=== PATIENT | male | born 1945 | race African-American/Black ===

== ENCOUNTER → 2016-06-29 | Outpatient (CLI) | payer MEDICARE, MEDICAID ==
[~2016-06-29] VITALS: Ht 180.3 cm; Wt 79.0 kg
[~2016-06-29] MED LIST: ADV250 IH; AMLO-511 PO; ASPI-891 PO; ATOR80TA PO; BACL10TA PO; DOCU250C21 PO; FURO40 PO; IPRA4AER IH; KDUR10 PO; LACT30L PO; LISI-662 PO; MELO-273 PO; MEMA5 PO; METO25 PO; NITR.4 SL; OMEP40CA12 PO; PERCT10 PO; PHEN100C9 PO; PRAS10TA6 PO; TAMS0.4C32 PO; TIOT185 IH; VALS1TAB81 PO
[2016-06-29 10:20] VITALS: BP 149/77
== END | disposition home or self-care (01) ==
LOC: SRCNTR 10:10
PROVIDERS: ATTEND Internal Medicine Cardiovascular Disease
DX: J44.9 Chronic obstructive pulmonary disease, unspecified (principal); I10 Essential (primary) hypertension; I25.10 Atherosclerotic heart disease of native coronary artery without angina pectoris; E78.5 Hyperlipidemia, unspecified; I73.9 Peripheral vascular disease, unspecified; M19.90 Unspecified osteoarthritis, unspecified site; Z86.718 Personal history of other venous thrombosis and embolism; Z95.5 Presence of coronary angioplasty implant and graft; Z87.891 Personal history of nicotine dependence
CPT/HCPCS: G0463

== ENCOUNTER 2016-08-10 15:15 | Emergency (ER) | payer MEDICARE, MEDICAID ==
[~2016-08-10] VITALS: Ht 180.3 cm; Wt 79.1 kg
[2016-08-10 15:18] VITALS: BP 104/67
== END 2016-08-10 19:37 | disposition left against medical advice (07) ==
LOC: EMS 15:17
DX: R20.0 Anesthesia of skin (principal); Z53.21 Procedure and treatment not carried out due to patient leaving prior to being seen by health care provider
CPT/HCPCS: 93005

== ENCOUNTER → 2016-10-10 | Outpatient (CLI) | payer MEDICARE, MEDICAID ==
[~2016-10-10] VITALS: Ht 177.8 cm; Wt 78.0 kg
[~2016-10-10] MED LIST changes: -ASPI-891 PO; -PERCT10 PO; -PRAS10TA6 PO
[2016-10-10 10:32] VITALS: BP 113/66
== END | disposition home or self-care (01) ==
LOC: SRCNTR 10:23
PROVIDERS: ATTEND Internal Medicine Cardiovascular Disease
DX: J44.9 Chronic obstructive pulmonary disease, unspecified (principal); I10 Essential (primary) hypertension; I25.10 Atherosclerotic heart disease of native coronary artery without angina pectoris; M19.90 Unspecified osteoarthritis, unspecified site; E78.5 Hyperlipidemia, unspecified; I73.9 Peripheral vascular disease, unspecified; Z86.73 Personal history of transient ischemic attack (TIA), and cerebral infarction without residual deficits; Z95.5 Presence of coronary angioplasty implant and graft; Z87.891 Personal history of nicotine dependence
CPT/HCPCS: G0463

== ENCOUNTER → 2016-11-04 | Outpatient (CLI) | payer MEDICARE, MEDICAID ==
[~2016-11-04] VITALS: Ht 180.3 cm; Wt 75.0 kg
[~2016-11-04] MED LIST changes: -ADV250 IH
[2016-11-04 11:47] VITALS: BP 110/55
== END | disposition home or self-care (01) ==
LOC: SRCNTR 11:33
PROVIDERS: ATTEND Hospitalist
DX: I10 Essential (primary) hypertension (principal); I25.10 Atherosclerotic heart disease of native coronary artery without angina pectoris; J44.9 Chronic obstructive pulmonary disease, unspecified; N40.1 Benign prostatic hyperplasia with lower urinary tract symptoms; M16.11 Unilateral primary osteoarthritis, right hip; I73.9 Peripheral vascular disease, unspecified; Z86.73 Personal history of transient ischemic attack (TIA), and cerebral infarction without residual deficits
CPT/HCPCS: G0463

== ENCOUNTER → 2016-12-14 | Outpatient (CLI) | payer MEDICARE, MEDICAID ==
[~2016-12-14] MED LIST changes: +PREG75 PO
[2016-12-14 10:58] VITALS: BP 141/65
== END | disposition home or self-care (01) ==
LOC: SRCNTR 10:40
PROVIDERS: ATTEND Internal Medicine Cardiovascular Disease
DX: J44.9 Chronic obstructive pulmonary disease, unspecified (principal); I25.10 Atherosclerotic heart disease of native coronary artery without angina pectoris; I10 Essential (primary) hypertension; I73.9 Peripheral vascular disease, unspecified; M19.90 Unspecified osteoarthritis, unspecified site; R26.2 Difficulty in walking, not elsewhere classified; Z87.891 Personal history of nicotine dependence; Z86.718 Personal history of other venous thrombosis and embolism; Z86.73 Personal history of transient ischemic attack (TIA), and cerebral infarction without residual deficits
CPT/HCPCS: G0463

== ENCOUNTER → 2017-02-13 | Outpatient (CLI) | payer MEDICARE, MEDICAID ==
[~2017-02-13] MED LIST changes: +ASPI81 PO; -DOCU250C21 PO; +DOCU250C90 PO; +FAMO20 PO; +FINA5TAB41 PO; +MELO-107 PO; -MELO-273 PO; +PRAS10TA6 PO; +PROM25 PO
[2017-02-13 09:57] VITALS: BP 140/91
== END | disposition home or self-care (01) ==
LOC: SRCNTR 09:52
PROVIDERS: ATTEND Internal Medicine Cardiovascular Disease
DX: I25.10 Atherosclerotic heart disease of native coronary artery without angina pectoris (principal); I73.9 Peripheral vascular disease, unspecified; J44.9 Chronic obstructive pulmonary disease, unspecified; I10 Essential (primary) hypertension; E78.5 Hyperlipidemia, unspecified; M19.90 Unspecified osteoarthritis, unspecified site; Z86.718 Personal history of other venous thrombosis and embolism; Z86.73 Personal history of transient ischemic attack (TIA), and cerebral infarction without residual deficits; Z87.891 Personal history of nicotine dependence; Z98.890 Other specified postprocedural states
CPT/HCPCS: G0463

== ENCOUNTER → 2017-02-23 | Outpatient (CLI) | payer MEDICARE, MEDICAID, OTHER ==
[2017-02-23 12:10] VITALS: BP 171/96
== END | disposition home or self-care (01) ==
LOC: SRCNTR 11:30
PROVIDERS: ATTEND Hospitalist
DX: J44.9 Chronic obstructive pulmonary disease, unspecified (principal); I25.10 Atherosclerotic heart disease of native coronary artery without angina pectoris; I10 Essential (primary) hypertension; E78.5 Hyperlipidemia, unspecified; M19.90 Unspecified osteoarthritis, unspecified site; Z98.890 Other specified postprocedural states; Z87.891 Personal history of nicotine dependence; Z86.73 Personal history of transient ischemic attack (TIA), and cerebral infarction without residual deficits; Z86.718 Personal history of other venous thrombosis and embolism
CPT/HCPCS: G0463

== ENCOUNTER → 2017-03-27 | Outpatient (CLI) | payer MEDICARE, MEDICAID ==
[2017-03-27 12:03] VITALS: BP 116/84
== END | disposition home or self-care (01) ==
LOC: SRCNTR 11:47
PROVIDERS: ATTEND Hospitalist
DX: I10 Essential (primary) hypertension (principal); I25.10 Atherosclerotic heart disease of native coronary artery without angina pectoris; J44.9 Chronic obstructive pulmonary disease, unspecified; E78.5 Hyperlipidemia, unspecified; M19.90 Unspecified osteoarthritis, unspecified site; I73.9 Peripheral vascular disease, unspecified; Z86.73 Personal history of transient ischemic attack (TIA), and cerebral infarction without residual deficits; Z86.718 Personal history of other venous thrombosis and embolism; Z87.891 Personal history of nicotine dependence
CPT/HCPCS: G0463

== ENCOUNTER → 2017-04-10 | Outpatient (CLI) | payer MEDICARE, MEDICAID ==
[2017-04-10 10:48] VITALS: BP 159/78
== END | disposition home or self-care (01) ==
LOC: SRCNTR 10:35
PROVIDERS: ATTEND Internal Medicine Cardiovascular Disease
DX: I10 Essential (primary) hypertension (principal); E78.5 Hyperlipidemia, unspecified; I25.10 Atherosclerotic heart disease of native coronary artery without angina pectoris; I73.9 Peripheral vascular disease, unspecified; J44.9 Chronic obstructive pulmonary disease, unspecified; M19.90 Unspecified osteoarthritis, unspecified site; Z86.73 Personal history of transient ischemic attack (TIA), and cerebral infarction without residual deficits; Z79.82 Long term (current) use of aspirin; Z87.891 Personal history of nicotine dependence; Z86.718 Personal history of other venous thrombosis and embolism
CPT/HCPCS: G0463

== ENCOUNTER → 2017-06-01 | Outpatient (CLI) | payer MEDICARE, MEDICAID ==
[2017-06-01 12:26] VITALS: BP 157/75
== END | disposition home or self-care (01) ==
LOC: SRCNTR 12:09
PROVIDERS: ATTEND Hospitalist
DX: I25.10 Atherosclerotic heart disease of native coronary artery without angina pectoris (principal); I73.9 Peripheral vascular disease, unspecified; J44.9 Chronic obstructive pulmonary disease, unspecified; I10 Essential (primary) hypertension; E78.5 Hyperlipidemia, unspecified; M19.90 Unspecified osteoarthritis, unspecified site; Z86.73 Personal history of transient ischemic attack (TIA), and cerebral infarction without residual deficits; Z86.718 Personal history of other venous thrombosis and embolism; M17.9 Osteoarthritis of knee, unspecified
CPT/HCPCS: G0463

== ENCOUNTER → 2017-07-10 | Outpatient (CLI) | payer MEDICARE, MEDICAID ==
[2017-07-10 09:47] VITALS: BP 169/93
== END | disposition home or self-care (01) ==
LOC: SRCNTR 09:46
PROVIDERS: ATTEND Hospitalist
DX: I25.10 Atherosclerotic heart disease of native coronary artery without angina pectoris (principal); I73.9 Peripheral vascular disease, unspecified; J44.9 Chronic obstructive pulmonary disease, unspecified; I10 Essential (primary) hypertension; E78.5 Hyperlipidemia, unspecified; M19.90 Unspecified osteoarthritis, unspecified site; Z86.718 Personal history of other venous thrombosis and embolism; Z86.73 Personal history of transient ischemic attack (TIA), and cerebral infarction without residual deficits
CPT/HCPCS: G0463

== ENCOUNTER → 2017-07-14 | Outpatient (CLI) | payer MEDICARE, OTHER | END | disposition home or self-care (01) | LOC: RADMN 13:27 | PROVIDERS: ATTEND Hospitalist | DX: I63.8 Other cerebral infarction (principal); I67.2 Cerebral atherosclerosis; G31.9 Degenerative disease of nervous system, unspecified; R29.6 Repeated falls | CPT/HCPCS: 70450 ==

== ENCOUNTER → 2017-12-21 | Outpatient (CLI) | payer MEDICARE, MEDICAID ==
[~2017-12-21] MED LIST changes: -ASPI81 PO; +CARI350 PO; -FAMO20 PO; +HYDR20TA20 PO; +MET500 PO; +NALO25TA PO
[2017-12-21 08:47] VITALS: BP 168/76
== END | disposition home or self-care (01) ==
LOC: SRCNTR 08:45
PROVIDERS: ATTEND Hospitalist
DX: I25.10 Atherosclerotic heart disease of native coronary artery without angina pectoris (principal); I73.9 Peripheral vascular disease, unspecified; I10 Essential (primary) hypertension; J44.9 Chronic obstructive pulmonary disease, unspecified; E78.5 Hyperlipidemia, unspecified; Z86.718 Personal history of other venous thrombosis and embolism; Z86.73 Personal history of transient ischemic attack (TIA), and cerebral infarction without residual deficits; M19.90 Unspecified osteoarthritis, unspecified site; G89.29 Other chronic pain; Z79.891 Long term (current) use of opiate analgesic
CPT/HCPCS: G0463

== ENCOUNTER → 2018-01-18 | Outpatient (CLI) | payer MEDICARE, MEDICAID ==
[2018-01-18 09:23] VITALS: BP 146/77
== END | disposition home or self-care (01) ==
LOC: SRCNTR 09:05
PROVIDERS: ATTEND Hospitalist
DX: I25.10 Atherosclerotic heart disease of native coronary artery without angina pectoris (principal); I73.9 Peripheral vascular disease, unspecified; J44.9 Chronic obstructive pulmonary disease, unspecified; I10 Essential (primary) hypertension; E78.5 Hyperlipidemia, unspecified; M19.90 Unspecified osteoarthritis, unspecified site; R05 Cough; G47.00 Insomnia, unspecified; Z86.73 Personal history of transient ischemic attack (TIA), and cerebral infarction without residual deficits; Z86.718 Personal history of other venous thrombosis and embolism; Z87.891 Personal history of nicotine dependence
CPT/HCPCS: G0463

== ENCOUNTER 2018-08-04 14:24 | Inpatient (IN) | payer MEDICARE, OTHER ==
[~2018-08-04] VITALS: Ht 180.3 cm; Wt 82.0 kg
[2018-08-04] MEDS ORDERED: HYDROCODONE/ACETAMINOPHEN 5-325 MG TABLET PO ONE (15:30)
[2018-08-04] MEDS ORDERED: 0.9% SODIUM CHLORIDE 10 ML SYRINGE IVP PRN ×2 (16:45→19:00)
[2018-08-04] MEDS ORDERED: IPRATROPIUM BROMIDE 0.5 MG/2.5 ML NEB SOLUTION NEB ONE (17:30)
[2018-08-04] MEDS ORDERED: ALBUTEROL SULFATE 2.5 MG/0.5 ML NEB SOLUTION NEB ONE (17:30)
[2018-08-04 17:45] LABS: BASOPHILS % (AUTO) 0.6 % (0.0-2.0); EOSINOPHILS % (AUTO) 1.2 % (1.0-6.0); HEMATOCRIT 38.6 % (41-53); HEMOGLOBIN 12.7 g/dL (13.5-17.5); LYMPHOCYTES # (AUTO) 1.6 K/uL (1.0-4.8); LYMPHOCYTES % (AUTO) 21.3 % (22.0-44.0); MEAN CORPUSCULAR HEMOGLOBIN 27.5 pg (26.0-34.0); MEAN CORPUSCULAR HGB CONC 32.8 G/dL (31.0-37.0); MEAN CORPUSCULAR VOLUME 84 fL (80-100); MONOCYTES # (AUTO) 0.8 K/uL (0.1-1.0); MONOCYTES % (AUTO) 10.8 % (2.0-9.0); NEUTROPHILS % (AUTO) 66.1 % (40.0-70.0); PLATELET COUNT (AUTO) 357 K/uL (150-450); RED CELL DISTRIBUTION WIDTH 13.9 % (11.5-14.5)
[2018-08-04] MEDS ORDERED: LEVOFLOXACIN 500 MG/D5% WATER 100 ML IV ONE (17:45)
[2018-08-04 17:51] LABS: ANION GAP 1 mmol/L (8-16); CALCIUM, TOTAL 11.2 mg/dL (8.8-10.5); CARBON DIOXIDE 29 mmol/L (22-29); CHLORIDE 101 mmol/L (98-107); CREATININE 1.19 mg/dL (0.60-1.30); GLOMERULAR FILTR. RATE CALC > 60 mL/min (>60); GLUCOSE,RANDOM 78 mg/dL (70-110); POTASSIUM 3.8 mmol/L (3.5-5.1); SODIUM SERUM 131 mmol/L (136-145); UREA NITROGEN, BLOOD 23 mg/dL (7-18)
[2018-08-04 17:54] LABS: INR 1.1 (0.9-1.1); PROTHROMBIN TIME 11.4 SEC (9.4-11.6)
[2018-08-04 17:57] LABS: LACTIC ACID 1.3 mmol/L (0.4-2.0)
[2018-08-04 17:59] LABS: APPEARANCE,URINE CLEAR (CLEAR); BILIRUBIN,URINE NEGATIVE (NEGATIVE); GLUCOSE, URINE (UA) NEGATIVE (NEGATIVE); KETONES,URINE NEGATIVE (NEGATIVE); LEUKOCYTE ESTERASE ,URINE NEGATIVE (NEGATIVE); NITRATE,URINE NEGATIVE (NEGATIVE); OCCULT BLOOD,URINE NEGATIVE (NEGATIVE); PROTEIN,URINE NEGATIVE (NEGATIVE)
[2018-08-04 18:14] LABS: B-TYPE NATRIURETIC PEPTIDE 86 pg/mL (0-100)
[2018-08-04 18:15] LABS: ALANINE AMINOTRANSFERASE 37 U/L (12-78); ALBUMIN 2.7 g/dL (3.4-5.0); ALKALINE PHOSPHATASE 81 U/L (46-116); ASPARTATE AMINOTRANSFERASE 45 U/L (15-37); BILIRUBIN,TOTAL 0.7 mg/dL (0.1-1.0); CREATINE KINASE, TOTAL ONLY 261 U/L (39-308); TOTAL PROTEIN, SERUM 7.6 g/dL (6.4-8.2)
[2018-08-04 18:44] LABS: INFLUENZA TYPE A NEGATIVE FOR TYPE A (NEGATIVE); INFLUENZA TYPE B NEGATIVE FOR TYPE B (NEGATIVE)
[2018-08-04] MEDS ORDERED: ONDANSETRON HCL 4 MG/2 ML VIAL IVP PRN (19:00)
[2018-08-04] MEDS ORDERED: OxyCODONE HCL/ACETAMINOPHEN 5-325 MG TABLET PO PRN (19:00)
[2018-08-04] MEDS ORDERED: ACETAMINOPHEN 325 MG TABLET PO PRN ×2 (19:00→20:00)
[2018-08-04] MEDS ORDERED: HYDROCODONE/ACETAMINOPHEN 5-325 MG TABLET PO PRN (19:00)
[2018-08-04] MEDS ORDERED: ZOLPIDEM TARTRATE 5 MG TABLET PO PRN (20:00)
[2018-08-04] MEDS ORDERED: ALBUTEROL SULFATE 2.5 MG/0.5 ML NEB SOLUTION NEB PRN ×2 (20:00)
[2018-08-04] MEDS ORDERED: MAGNESIUM HYDROXIDE SUSPENSION 30 ML UDCUP PO PRN (20:00)
[2018-08-04] MEDS ORDERED: IPRATROPIUM BROMIDE 0.5 MG/2.5 ML NEB SOLUTION NEB PRN ×2 (20:00)
[2018-08-04] MEDS ORDERED: MORPHINE SULFATE 2 MG/ML SYRINGE IVP PRN (20:00)
[2018-08-04] MEDS ORDERED: BISACODYL 10 MG RECTAL RECTAL SUPPOSITORY PR PRN (20:00)
[2018-08-04] MEDS ORDERED: PHENYTOIN SODIUM 100 MG ER CAPSULE PO PRN (20:00)
[2018-08-04 21:24] VITALS: BP 153/82
[2018-08-04] MEDS: FINASTERIDE 5 MG TABLET PO SCH (22:15)
[2018-08-04] MEDS: DOCUSATE SODIUM 100 MG CAPSULE PO SCH (22:15)
[2018-08-04] MEDS: TAMSULOSIN HCL 0.4 MG CAPSULE PO SCH (22:15)
[2018-08-04] MEDS: BENZONATATE 100 MG CAPSULE PO SCH (22:15)
[2018-08-04] MEDS: CARISOPRODOL 350 MG TABLET PO SCH (22:15)
[2018-08-04] MEDS: PREGABALIN 75 MG CAPSULE PO SCH (22:15)
[2018-08-04] MEDS: GuaiFENesin SR 600 MG ER TABLET PO SCH (22:15)
[2018-08-04] MEDS: METOPROLOL TARTRATE 25 MG TABLET PO SCH (22:15)
[2018-08-04] MEDS: HYDROCODONE/ACETAMINOPHEN 5-325 MG TABLET PO PRN (22:16)
[2018-08-04] MEDS: HEPARIN SODIUM,PORCINE 5,000 UNITS/ML VIAL SQ SCH (22:54)
[2018-08-04] MEDS: MethylPREDNISolone SOD SUCC 125 MG/2 ML VIAL IVP SCH (22:55)
[2018-08-04] MEDS: LACTULOSE 20 GM/30 ML SOLUTION UDCUP PO SCH (22:55)
[2018-08-05] VITALS (7 sets, daily range): BP systolic 109–155; BP diastolic 52–74
[2018-08-05] MEDS ORDERED: IPRATROPIUM BROMIDE 0.5 MG/2.5 ML NEB SOLUTION NEB SCH
[2018-08-05] MEDS ORDERED: ALBUTEROL SULFATE 2.5 MG/0.5 ML NEB SOLUTION NEB SCH
[2018-08-05] MEDS: IPRATROPIUM BROMIDE 0.5 MG/2.5 ML NEB SOLUTION NEB SCH ×4 (01:36→19:41)
[2018-08-05] MEDS: ALBUTEROL SULFATE 2.5 MG/0.5 ML NEB SOLUTION NEB SCH ×4 (01:36→19:41)
[2018-08-05] MEDS: MethylPREDNISolone SOD SUCC 125 MG/2 ML VIAL IVP SCH ×4 (05:05→23:39)
[2018-08-05] MEDS ORDERED: PNEUMOCOCCAL VACCINE POLYVALENT 0.5 ML VIAL [PPSV23] IM ONE (06:15)
[2018-08-05 07:00] LABS: BASOPHILS % (AUTO) 0.2 % (0.0-2.0); EOSINOPHILS % (AUTO) 0 % (1.0-6.0); HEMATOCRIT 38.2 % (41-53); HEMOGLOBIN 12.4 g/dL (13.5-17.5); LYMPHOCYTES # (AUTO) 0.6 K/uL (1.0-4.8); LYMPHOCYTES % (AUTO) 11.5 % (22.0-44.0); MEAN CORPUSCULAR HEMOGLOBIN 27.4 pg (26.0-34.0); MEAN CORPUSCULAR HGB CONC 32.5 G/dL (31.0-37.0); MEAN CORPUSCULAR VOLUME 85 fL (80-100); MONOCYTES # (AUTO) 0.1 K/uL (0.1-1.0); MONOCYTES % (AUTO) 2.2 % (2.0-9.0); NEUTROPHILS # (AUTO) 4.5 K/uL (1.8-7.7); PLATELET COUNT (AUTO) 318 K/uL (150-450); RED BLOOD CELL COUNT(AUTO) 4.51 MIL/uL (4.50-5.90); RED CELL DISTRIBUTION WIDTH 14.2 % (11.5-14.5)
[2018-08-05 07:04] LABS: NEUTROPHILS % (AUTO) 86.1 % (40.0-70.0)
[2018-08-05] MEDS: ATORVASTATIN CALCIUM 40 MG TABLET PO SCH (08:52)
[2018-08-05] MEDS: DOCUSATE SODIUM 100 MG CAPSULE PO SCH ×2 (08:52→21:39)
[2018-08-05] MEDS: HEPARIN SODIUM,PORCINE 5,000 UNITS/ML VIAL SQ SCH ×3 (08:52→23:40)
[2018-08-05] MEDS: LACTULOSE 20 GM/30 ML SOLUTION UDCUP PO SCH ×3 (08:52→23:41)
[2018-08-05] MEDS: PRASUGREL HCL 10 MG TABLET PO SCH (08:53)
[2018-08-05] MEDS: MEMANTINE HCL 10 MG TABLET PO SCH (08:53)
[2018-08-05] MEDS: FUROSEMIDE 40 MG TABLET PO SCH (08:53)
[2018-08-05] MEDS: TAMSULOSIN HCL 0.4 MG CAPSULE PO SCH ×2 (08:53→21:39)
[2018-08-05] MEDS: BENZONATATE 100 MG CAPSULE PO SCH ×3 (08:53→21:39)
[2018-08-05] MEDS: GuaiFENesin SR 600 MG ER TABLET PO SCH ×2 (08:53→21:39)
[2018-08-05] MEDS: PREGABALIN 75 MG CAPSULE PO SCH ×2 (08:53→21:39)
[2018-08-05] MEDS: CARISOPRODOL 350 MG TABLET PO SCH ×2 (08:53→21:39)
[2018-08-05] MEDS: PANTOPRAZOLE SODIUM 40 MG DR TABLET PO SCH (08:53)
[2018-08-05] MEDS: POTASSIUM CHLORIDE 20 MEQ ER TABLET PO SCH (08:53)
[2018-08-05] MEDS: HYDROCHLOROTHIAZIDE 25 MG TABLET PO SCH (08:54)
[2018-08-05] MEDS: METOPROLOL TARTRATE 25 MG TABLET PO SCH ×2 (08:54→21:00)
[2018-08-05] MEDS: AmLODIPine BESYLATE 5 MG TABLET PO SCH (08:54)
[2018-08-05] MEDS ORDERED: [UNRECOGNIZED DRUG - OTHER] PO SCH (09:00)
[2018-08-05 09:33] LABS: ALANINE AMINOTRANSFERASE 30 U/L (12-78); ALBUMIN 2.2 g/dL (3.4-5.0); ALKALINE PHOSPHATASE 74 U/L (46-116); ANION GAP 11 mmol/L (8-16); ASPARTATE AMINOTRANSFERASE 31 U/L (15-37); BILIRUBIN,TOTAL 0.5 mg/dL (0.1-1.0); CALCIUM, TOTAL 10.2 mg/dL (8.8-10.5); CARBON DIOXIDE 24 mmol/L (22-29); CHLORIDE 107 mmol/L (98-107); CREATININE 1.28 mg/dL (0.60-1.30); GLUCOSE,RANDOM 216 mg/dL (70-110); POTASSIUM 4.7 mmol/L (3.5-5.1); SODIUM SERUM 142 mmol/L (136-145); TOTAL PROTEIN, SERUM 6.7 g/dL (6.4-8.2); UREA NITROGEN, BLOOD 27 mg/dL (7-18)
[2018-08-05 09:34] LABS: GLOMERULAR FILTR. RATE CALC > 60 mL/min (>60)
[2018-08-05] MEDS: VALSARTAN 160 MG TABLET PO SCH (10:09)
[2018-08-05] MEDS: LISINOPRIL 20 MG TABLET PO SCH (10:09)
[2018-08-05] MEDS ORDERED: SODIUM CHLORIDE 0.9% 100 ML ONE (17:56)
[2018-08-05] MEDS: LEVOFLOXACIN 750 MG/D5% WATER 150 ML IV SCH (18:08)
[2018-08-05] MEDS: FINASTERIDE 5 MG TABLET PO SCH (21:39)
[2018-08-06] MEDS: IPRATROPIUM BROMIDE 0.5 MG/2.5 ML NEB SOLUTION NEB SCH ×4 (02:11→19:32)
[2018-08-06] MEDS: ALBUTEROL SULFATE 2.5 MG/0.5 ML NEB SOLUTION NEB SCH ×4 (02:11→19:32)
[2018-08-06 04:56] VITALS: BP 129/67
[2018-08-06] MEDS: MethylPREDNISolone SOD SUCC 125 MG/2 ML VIAL IVP SCH ×4 (06:28→23:36)
[2018-08-06 07:37] LABS: BASOPHILS % (AUTO) 0.1 % (0.0-2.0); EOSINOPHILS % (AUTO) 0 % (1.0-6.0); HEMATOCRIT 34.1 % (41-53); HEMOGLOBIN 11.4 g/dL (13.5-17.5); LYMPHOCYTES % (AUTO) 7.5 % (22.0-44.0); MEAN CORPUSCULAR HEMOGLOBIN 27.9 pg (26.0-34.0); MEAN CORPUSCULAR HGB CONC 33.6 G/dL (31.0-37.0); MEAN CORPUSCULAR VOLUME 83 fL (80-100); MONOCYTES # (AUTO) 0.8 K/uL (0.1-1.0); MONOCYTES % (AUTO) 6.4 % (2.0-9.0); NEUTROPHILS # (AUTO) 10.9 K/uL (1.8-7.7); PLATELET COUNT (AUTO) 361 K/uL (150-450); RED CELL DISTRIBUTION WIDTH 13.9 % (11.5-14.5)
[2018-08-06 07:47] LABS: ANION GAP 11 mmol/L (8-16); CALCIUM, TOTAL 9.8 mg/dL (8.8-10.5); CARBON DIOXIDE 24 mmol/L (22-29); CHLORIDE 105 mmol/L (98-107); GLUCOSE,RANDOM 198 mg/dL (70-110); POTASSIUM 4.3 mmol/L (3.5-5.1); SODIUM SERUM 140 mmol/L (136-145); UREA NITROGEN, BLOOD 35 mg/dL (7-18)
[2018-08-06 07:51] LABS: GLOMERULAR FILTR. RATE CALC > 60 mL/min (>60)
[2018-08-06] MEDS: LACTULOSE 20 GM/30 ML SOLUTION UDCUP PO SCH ×3 (08:00→23:40)
[2018-08-06 08:15] VITALS: BP 140/68
[2018-08-06] MEDS: PRASUGREL HCL 10 MG TABLET PO SCH (08:51)
[2018-08-06] MEDS: ATORVASTATIN CALCIUM 40 MG TABLET PO SCH (08:51)
[2018-08-06] MEDS: POTASSIUM CHLORIDE 20 MEQ ER TABLET PO SCH (08:51)
[2018-08-06] MEDS: HYDROCHLOROTHIAZIDE 25 MG TABLET PO SCH (08:51)
[2018-08-06] MEDS: FUROSEMIDE 40 MG TABLET PO SCH (08:51)
[2018-08-06] MEDS: AmLODIPine BESYLATE 5 MG TABLET PO SCH (08:51)
[2018-08-06] MEDS: LISINOPRIL 20 MG TABLET PO SCH (08:51)
[2018-08-06] MEDS: GuaiFENesin SR 600 MG ER TABLET PO SCH ×2 (08:52→21:07)
[2018-08-06] MEDS: BENZONATATE 100 MG CAPSULE PO SCH ×3 (08:52→21:07)
[2018-08-06] MEDS: CARISOPRODOL 350 MG TABLET PO SCH ×2 (08:52→21:06)
[2018-08-06] MEDS: MEMANTINE HCL 10 MG TABLET PO SCH (08:52)
[2018-08-06] MEDS: PANTOPRAZOLE SODIUM 40 MG DR TABLET PO SCH (08:52)
[2018-08-06] MEDS: PREGABALIN 75 MG CAPSULE PO SCH ×2 (08:52→21:06)
[2018-08-06] MEDS: TAMSULOSIN HCL 0.4 MG CAPSULE PO SCH ×2 (08:52→21:06)
[2018-08-06] MEDS: DOCUSATE SODIUM 100 MG CAPSULE PO SCH ×2 (08:53→21:05)
[2018-08-06] MEDS: HEPARIN SODIUM,PORCINE 5,000 UNITS/ML VIAL SQ SCH ×3 (08:53→23:36)
[2018-08-06] MEDS: VALSARTAN 160 MG TABLET PO SCH (08:53)
[2018-08-06] MEDS: METOPROLOL TARTRATE 25 MG TABLET PO SCH ×2 (10:25→21:07)
[2018-08-06] MEDS ORDERED: MEMA10TA11 PO (11:21)
[2018-08-06] MEDS ORDERED: KDUR20 PO (11:21)
[2018-08-06] MEDS ORDERED: OMEP20 PO (11:21)
[2018-08-06] MEDS ORDERED: HYDROCODONE/CHLORPHEN POLIS 10-8 MG/5 ML ORAL.SYG PO PRN (12:00)
[2018-08-06 12:02] VITALS: BP 137/65
[2018-08-06 15:13] VITALS: BP 122/67
[2018-08-06] MEDS: HYDROCODONE/ACETAMINOPHEN 5-325 MG TABLET PO PRN (15:27)
[2018-08-06] MEDS: BUDESONIDE 0.5 MG/2 ML NEB SOLUTION NEB SCH ×2 (16:00→22:21)
[2018-08-06] MEDS: LEVOFLOXACIN 750 MG/D5% WATER 150 ML IV SCH (17:47)
[2018-08-06 20:54] VITALS: BP 122/63
[2018-08-06] MEDS: FINASTERIDE 5 MG TABLET PO SCH (21:06)
[2018-08-07 00:37] VITALS: BP 120/68
[2018-08-07] MEDS: IPRATROPIUM BROMIDE 0.5 MG/2.5 ML NEB SOLUTION NEB SCH ×2 (02:25→08:35)
[2018-08-07] MEDS: ALBUTEROL SULFATE 2.5 MG/0.5 ML NEB SOLUTION NEB SCH ×2 (02:25→08:35)
[2018-08-07 04:58] VITALS: BP 128/73
[2018-08-07] MEDS: MethylPREDNISolone SOD SUCC 125 MG/2 ML VIAL IVP SCH ×2 (05:46→11:56)
[2018-08-07 06:02] LABS: BASOPHILS % (AUTO) 0.1 % (0.0-2.0); EOSINOPHILS % (AUTO) 0 % (1.0-6.0); HEMATOCRIT 34.7 % (41-53); HEMOGLOBIN 11.3 g/dL (13.5-17.5); LYMPHOCYTES # (AUTO) 0.7 K/uL (1.0-4.8); LYMPHOCYTES % (AUTO) 7.1 % (22.0-44.0); MEAN CORPUSCULAR HEMOGLOBIN 27.5 pg (26.0-34.0); MEAN CORPUSCULAR HGB CONC 32.5 G/dL (31.0-37.0); MEAN CORPUSCULAR VOLUME 85 fL (80-100); MONOCYTES # (AUTO) 0.4 K/uL (0.1-1.0); MONOCYTES % (AUTO) 4.3 % (2.0-9.0); NEUTROPHILS # (AUTO) 8.9 K/uL (1.8-7.7); PLATELET COUNT (AUTO) 381 K/uL (150-450); RED CELL DISTRIBUTION WIDTH 13.9 % (11.5-14.5)
[2018-08-07 06:08] LABS: NEUTROPHILS % (AUTO) 88.5 % (40.0-70.0)
[2018-08-07 06:13] LABS: ANION GAP 10 mmol/L (8-16); CALCIUM, TOTAL 9.6 mg/dL (8.8-10.5); CARBON DIOXIDE 24 mmol/L (22-29); CHLORIDE 105 mmol/L (98-107); CREATININE 1.28 mg/dL (0.60-1.30); GLOMERULAR FILTR. RATE CALC > 60 mL/min (>60); GLUCOSE,RANDOM 271 mg/dL (70-110); POTASSIUM 4.4 mmol/L (3.5-5.1); SODIUM SERUM 139 mmol/L (136-145); UREA NITROGEN, BLOOD 37 mg/dL (7-18)
[2018-08-07 08:23] VITALS: BP 134/77
[2018-08-07] MEDS: BUDESONIDE 0.5 MG/2 ML NEB SOLUTION NEB SCH (08:35)
[2018-08-07] MEDS: HEPARIN SODIUM,PORCINE 5,000 UNITS/ML VIAL SQ SCH (09:03)
[2018-08-07] MEDS: LACTULOSE 20 GM/30 ML SOLUTION UDCUP PO SCH (09:03)
[2018-08-07] MEDS: DOCUSATE SODIUM 100 MG CAPSULE PO SCH (09:04)
[2018-08-07] MEDS: ATORVASTATIN CALCIUM 40 MG TABLET PO SCH (09:04)
[2018-08-07] MEDS: VALSARTAN 160 MG TABLET PO SCH (09:04)
[2018-08-07] MEDS: HYDROCHLOROTHIAZIDE 25 MG TABLET PO SCH (09:04)
[2018-08-07] MEDS: AmLODIPine BESYLATE 5 MG TABLET PO SCH (09:05)
[2018-08-07] MEDS: CARISOPRODOL 350 MG TABLET PO SCH (09:05)
[2018-08-07] MEDS: METOPROLOL TARTRATE 25 MG TABLET PO SCH (09:05)
[2018-08-07] MEDS: TAMSULOSIN HCL 0.4 MG CAPSULE PO SCH (09:05)
[2018-08-07] MEDS: PANTOPRAZOLE SODIUM 40 MG DR TABLET PO SCH (09:05)
[2018-08-07] MEDS: PREGABALIN 75 MG CAPSULE PO SCH (09:05)
[2018-08-07] MEDS: BENZONATATE 100 MG CAPSULE PO SCH (09:05)
[2018-08-07] MEDS: LISINOPRIL 20 MG TABLET PO SCH (09:05)
[2018-08-07] MEDS: POTASSIUM CHLORIDE 20 MEQ ER TABLET PO SCH (09:05)
[2018-08-07] MEDS: PRASUGREL HCL 10 MG TABLET PO SCH (09:05)
[2018-08-07] MEDS: MEMANTINE HCL 10 MG TABLET PO SCH (09:06)
[2018-08-07] MEDS: FUROSEMIDE 40 MG TABLET PO SCH (09:06)
[2018-08-07] MEDS: GuaiFENesin SR 600 MG ER TABLET PO SCH (09:06)
[2018-08-07 09:10] VITALS: BP 130/67
[2018-08-07 12:01] VITALS: BP 125/70
[2018-08-07] MEDS ORDERED: PRED20 PO ×2 (12:47→12:50)
[2018-08-07] MEDS ORDERED: PRED10 PO (12:48)
[2018-08-07] MEDS ORDERED: PRED5 PO (12:48)
[2018-08-07] MEDS ORDERED: OMEP20 PO (12:49)
[2018-08-07] MEDS ORDERED: LEVO250 PO (12:51)
[2018-08-07] MEDS ORDERED: ADV250 IH (12:51)
[2018-08-07] MEDS ORDERED: IPRAHFA IH (12:52)
[2018-08-07] MEDS ORDERED: GUAI600T30 PO (12:54)
[2018-08-07] MEDS ORDERED: BENZ-51 PO (12:55)
== END 2018-08-07 14:05 | disposition home or self-care (01) | DRG 190 ==
LOC: EMS 14:26 → 5S 20:20
PROVIDERS: ADMIT Internal Medicine; ATTEND Internal Medicine
DX: J44.1 Chronic obstructive pulmonary disease with (acute) exacerbation (principal); J18.9 Pneumonia, unspecified organism; J44.0 Chronic obstructive pulmonary disease with (acute) lower respiratory infection; M19.90 Unspecified osteoarthritis, unspecified site; M10.9 Gout, unspecified; F12.90 Cannabis use, unspecified, uncomplicated; D72.828 Other elevated white blood cell count; T78.8XXA Other adverse effects, not elsewhere classified, initial encounter; X58.XXXA Exposure to other specified factors, initial encounter; N40.0 Benign prostatic hyperplasia without lower urinary tract symptoms; K21.9 Gastro-esophageal reflux disease without esophagitis; I10 Essential (primary) hypertension; I25.10 Atherosclerotic heart disease of native coronary artery without angina pectoris; I25.2 Old myocardial infarction; Z86.73 Personal history of transient ischemic attack (TIA), and cerebral infarction without residual deficits; Z86.718 Personal history of other venous thrombosis and embolism; Z87.891 Personal history of nicotine dependence; Z95.5 Presence of coronary angioplasty implant and graft
CPT/HCPCS: 71101; 83605; 87040; 87081; 87804; 93005; 94060; 94640; 96365; 97162; 97530; G0378; J1644; J1956; J2270; J2930; J7050

== ENCOUNTER 2018-09-05 21:59 | Emergency (ER) | payer MEDICARE, OTHER ==
[~2018-09-05] VITALS: Ht 180.3 cm; Wt 90.9 kg
[~2018-09-05 21:59] MED LIST changes: +ADV250 IH; +ASPI81 PO; -ATOR80TA PO; -BACL10TA PO; -CARI350 PO; -FURO40 PO; -HYDR20TA20 PO; -KDUR10 PO; +KDUR20 PO; -LACT30L PO; -LISI-662 PO; -MELO-107 PO; -MEMA5 PO; -MET500 PO; -METO25 PO; -NALO25TA PO; +OMEP20 PO; -OMEP40CA12 PO; +PRED10 PO; -PROM25 PO; -VALS1TAB81 PO
[2018-09-06] MEDS ORDERED: HYDROCODONE/ACETAMINOPHEN 5-325 MG TABLET PO ONE
[2018-09-06 01:26] LABS: INR 1.1 (0.9-1.1); PROTHROMBIN TIME 11.2 SEC (9.4-11.6)
[2018-09-06 04:00] VITALS: BP 121/60
== END 2018-09-06 04:21 | disposition home or self-care (01) ==
LOC: EMS 22:02
DX: S16.1XXA Strain of muscle, fascia and tendon at neck level, initial encounter (principal); I10 Essential (primary) hypertension; I25.2 Old myocardial infarction; K21.9 Gastro-esophageal reflux disease without esophagitis; J44.9 Chronic obstructive pulmonary disease, unspecified; I25.10 Atherosclerotic heart disease of native coronary artery without angina pectoris; F17.210 Nicotine dependence, cigarettes, uncomplicated; F12.90 Cannabis use, unspecified, uncomplicated; Z79.899 Other long term (current) drug therapy; V49.40XA Driver injured in collision with unspecified motor vehicles in traffic accident, initial encounter; Y93.89 Activity, other specified; Y92.89 Other specified places as the place of occurrence of the external cause; Y99.8 Other external cause status
CPT/HCPCS: 72040

== ENCOUNTER 2018-09-08 08:46 | Emergency (ER) | payer MEDICARE, OTHER ==
[~2018-09-08] VITALS: Ht 180.3 cm; Wt 77.0 kg
[~2018-09-08 08:46] MED LIST changes: -PRED10 PO
[2018-09-08] MEDS ORDERED: ASPIRIN 81 MG CHEWABLE TABLET PO ONE (12:00)
[2018-09-08] MEDS ORDERED: POTASSIUM CHLORIDE 20 MEQ ER TABLET PO ONE (12:00)
[2018-09-08] MEDS ORDERED: PREGABALIN 75 MG CAPSULE PO ONE (12:00)
[2018-09-08] MEDS ORDERED: TraMADol HCL 50 MG TABLET PO ONE (12:00)
[2018-09-08] MEDS ORDERED: AmLODIPine BESYLATE 5 MG TABLET PO ONE (12:00)
[2018-09-08] MEDS ORDERED: TAMSULOSIN HCL 0.4 MG CAPSULE PO ONE (12:00)
[2018-09-08] MEDS ORDERED: PRASUGREL HCL 10 MG TABLET PO ONE (12:00)
[2018-09-08 12:25] VITALS: BP 127/73
== END 2018-09-08 13:30 | disposition home or self-care (01) ==
LOC: EMS 08:47
DX: M17.0 Bilateral primary osteoarthritis of knee (principal); I25.10 Atherosclerotic heart disease of native coronary artery without angina pectoris; I10 Essential (primary) hypertension; I25.2 Old myocardial infarction; J44.9 Chronic obstructive pulmonary disease, unspecified; K21.9 Gastro-esophageal reflux disease without esophagitis; F17.210 Nicotine dependence, cigarettes, uncomplicated; F12.90 Cannabis use, unspecified, uncomplicated; Z79.82 Long term (current) use of aspirin; Z86.73 Personal history of transient ischemic attack (TIA), and cerebral infarction without residual deficits; Z86.718 Personal history of other venous thrombosis and embolism; Z79.899 Other long term (current) drug therapy; Z98.890 Other specified postprocedural states

== ENCOUNTER 2019-01-30 20:38 | Inpatient (IN) | payer MEDICARE, OTHER ==
[~2019-01-30] VITALS: Ht 180.3 cm; Wt 76.9 kg
[~2019-01-30 20:38] MED LIST changes: -AMLO-511 PO; +AMLO5TAB9 PO; -NITR.4 SL; +NITR0.4T52 SL
[2019-01-31 00:46] LABS: EOSINOPHILS % (AUTO) 3.3 % (1.0-6.0); HEMATOCRIT 44.8 % (41-53); HEMOGLOBIN 14.4 g/dL (13.5-17.5); LYMPHOCYTES # (AUTO) 2.5 K/uL (1.0-4.8); LYMPHOCYTES % (AUTO) 45.4 % (22.0-44.0); MEAN CORPUSCULAR HEMOGLOBIN 26.5 pg (26.0-34.0); MEAN CORPUSCULAR HGB CONC 32.2 G/dL (31.0-37.0); MEAN CORPUSCULAR VOLUME 82 fL (80-100); MONOCYTES # (AUTO) 0.6 K/uL (0.1-1.0); MONOCYTES % (AUTO) 11.4 % (2.0-9.0); NEUTROPHILS # (AUTO) 2.2 K/uL (1.8-7.7); NEUTROPHILS % (AUTO) 38.9 % (40.0-70.0); PLATELET COUNT (AUTO) 230 K/uL (150-450); RED BLOOD CELL COUNT(AUTO) 5.45 MIL/uL (4.50-5.90); RED CELL DISTRIBUTION WIDTH 15.2 % (11.5-14.5)
[2019-01-31 01:02] LABS: CALCIUM, TOTAL 10.8 mg/dL (8.8-10.5); CREATININE 1.71 mg/dL (0.60-1.30); POTASSIUM 4.2 mmol/L (3.5-5.1)
[2019-01-31 01:07] LABS: ALBUMIN 3.7 g/dL (3.4-5.0); BILIRUBIN,TOTAL 0.7 mg/dL (0.1-1.0); TOTAL PROTEIN, SERUM 7.7 g/dL (6.4-8.2)
[2019-01-31] MEDS ORDERED: 0.9% SODIUM CHLORIDE 10 ML SYRINGE IVP PRN (02:00)
[2019-01-31] MEDS ORDERED: ONDANSETRON HCL 4 MG/2 ML VIAL IVP PRN (02:00)
[2019-01-31] MEDS ORDERED: ACETAMINOPHEN 325 MG TABLET PO PRN ×2 (02:00→08:30)
[2019-01-31 03:57] VITALS: BP 109/68
[2019-01-31] MEDS ORDERED: INFLUENZA VIRUS VACCINE QVS 2019-20 (3YR+)/PF 60 MCG/0.5 ML SYRINGE IM ONE (05:15)
[2019-01-31 07:30] VITALS: BP 123/74
[2019-01-31] MEDS ORDERED: PRASUGREL HCL 10 MG TABLET PO ONE (08:30)
[2019-01-31] MEDS ORDERED: DEXTROSE 50%-WATER 25 GM/50 ML SYRINGE IVP PRN (08:30)
[2019-01-31] MEDS: FAMOTIDINE 20 MG TABLET PO SCH (09:42)
[2019-01-31] MEDS: ASPIRIN 81 MG CHEWABLE TABLET PO SCH (09:43)
[2019-01-31] MEDS: OxyCODONE HCL/ACETAMINOPHEN 5-325 MG TABLET PO PRN ×2 (09:47→20:07)
[2019-01-31 11:28] VITALS: BP 114/57
[2019-01-31] MEDS: INSULIN LISPRO 100 UNITS/ML SQ PRN (11:57)
[2019-01-31 15:55] VITALS: BP 119/65
[2019-01-31 18:11] LABS: GLUCOMETER DEV NAME(LOC) 4E.2; GLUCOSE,POINT OF CARE 106 MG/DL (70-110)
[2019-01-31 18:11] LABS: GLUCOMETER DEV NAME(LOC) 4E.2; GLUCOSE,POINT OF CARE 97 MG/DL (70-110)
[2019-01-31 19:42] VITALS: BP 118/75
[2019-01-31] MEDS: TAMSULOSIN HCL 0.4 MG CAPSULE PO SCH (20:07)
[2019-01-31] MEDS ORDERED: AMLO5TAB9 PO (20:18)
[2019-01-31] MEDS ORDERED: HYDR-2924 PO (20:18)
[2019-01-31] MEDS ORDERED: LISI-662 PO (20:21)
[2019-01-31 23:25] VITALS: BP 104/66
[2019-02-01 03:55] VITALS: BP 126/70
[2019-02-01] MEDS: OxyCODONE HCL/ACETAMINOPHEN 5-325 MG TABLET PO PRN ×2 (04:01→08:55)
[2019-02-01 07:56] LABS: GLUCOMETER DEV NAME(LOC) 6N.2; GLUCOSE,POINT OF CARE 95 MG/DL (70-110)
[2019-02-01 07:56] LABS: GLUCOMETER DEV NAME(LOC) 6N.2; GLUCOSE,POINT OF CARE 97 MG/DL (70-110)
[2019-02-01 08:02] VITALS: BP 135/73
[2019-02-01] MEDS: FAMOTIDINE 20 MG TABLET PO SCH (08:05)
[2019-02-01] MEDS: DOCUSATE SODIUM 100 MG CAPSULE PO PRN (08:05)
[2019-02-01] MEDS: ASPIRIN 81 MG CHEWABLE TABLET PO SCH (08:05)
[2019-02-01 11:36] LABS: GLUCOMETER DEV NAME(LOC) 4E.2; GLUCOSE,POINT OF CARE 119 MG/DL (70-110)
[2019-02-01 11:40] VITALS: BP 159/87
[2019-02-01 15:49] VITALS: BP 138/98
[2019-02-01] MEDS: INSULIN LISPRO 100 UNITS/ML SQ PRN (18:26)
[2019-02-01 19:25] LABS: GLUCOMETER DEV NAME(LOC) 4E.2; GLUCOSE,POINT OF CARE 153 MG/DL (70-110)
[2019-02-01 20:07] VITALS: BP 115/74
[2019-02-01] MEDS: TAMSULOSIN HCL 0.4 MG CAPSULE PO SCH (20:39)
[2019-02-01 23:34] VITALS: BP 123/76
[2019-02-02 05:45] VITALS: BP 132/76
[2019-02-02] MEDS: OxyCODONE HCL/ACETAMINOPHEN 5-325 MG TABLET PO PRN ×3 (06:06→20:35)
[2019-02-02 06:45] LABS: GLUCOMETER DEV NAME(LOC) 6N.2; GLUCOSE,POINT OF CARE 92 MG/DL (70-110)
[2019-02-02 06:46] LABS: GLUCOMETER DEV NAME(LOC) 6N.2; GLUCOSE,POINT OF CARE 112 MG/DL (70-110)
[2019-02-02 07:15] VITALS: BP 140/78
[2019-02-02] MEDS: ASPIRIN 81 MG CHEWABLE TABLET PO SCH (08:05)
[2019-02-02] MEDS: DOCUSATE SODIUM 100 MG CAPSULE PO PRN (08:05)
[2019-02-02] MEDS: FAMOTIDINE 20 MG TABLET PO SCH (08:05)
[2019-02-02 08:16] LABS: ANION GAP 9 mmol/L (8-16); CALCIUM, TOTAL 10.8 mg/dL (8.8-10.5); CARBON DIOXIDE 26 mmol/L (22-29); CHLORIDE 103 mmol/L (98-107); CREATININE 1.31 mg/dL (0.60-1.30); GLUCOSE,RANDOM 111 mg/dL (70-110); POTASSIUM 3.9 mmol/L (3.5-5.1); SODIUM SERUM 138 mmol/L (136-145); UREA NITROGEN, BLOOD 19 mg/dL (7-18)
[2019-02-02 08:19] LABS: GLOMERULAR FILTR. RATE CALC > 60 mL/min (>60)
[2019-02-02] MEDS ORDERED: MAGNESIUM HYDROXIDE SUSPENSION 30 ML UDCUP PO PRN ×2 (10:00)
[2019-02-02] MEDS ORDERED: SODIUM CHLORIDE 0.45% 1,000 ML IV ONE (10:00)
[2019-02-02] MEDS ORDERED: ALBUTEROL SULFATE 2.5 MG/0.5 ML NEB SOLUTION NEB PRN (10:00)
[2019-02-02 11:20] VITALS: BP 125/81
[2019-02-02 15:10] VITALS: BP 138/68
[2019-02-02 16:45] LABS: GLUCOMETER DEV NAME(LOC) 6N.2; GLUCOSE,POINT OF CARE 133 MG/DL (70-110)
[2019-02-02 20:00] VITALS: BP 123/72
[2019-02-02] MEDS: TAMSULOSIN HCL 0.4 MG CAPSULE PO SCH (20:33)
[2019-02-03 00:12] VITALS: BP 131/88
[2019-02-03 04:00] VITALS: BP 133/80
[2019-02-03] MEDS: OxyCODONE HCL/ACETAMINOPHEN 5-325 MG TABLET PO PRN ×2 (05:37→15:17)
[2019-02-03 06:21] LABS: GLUCOMETER DEV NAME(LOC) 4E.2; GLUCOSE,POINT OF CARE 110 MG/DL (70-110)
[2019-02-03 06:21] LABS: GLUCOMETER DEV NAME(LOC) 4E.2; GLUCOSE,POINT OF CARE 103 MG/DL (70-110)
[2019-02-03 06:21] LABS: GLUCOMETER DEV NAME(LOC) 4E.2; GLUCOSE,POINT OF CARE 109 MG/DL (70-110)
[2019-02-03] MEDS: FAMOTIDINE 20 MG TABLET PO SCH (07:49)
[2019-02-03] MEDS: ASPIRIN 81 MG CHEWABLE TABLET PO SCH (07:49)
[2019-02-03] MEDS: DOCUSATE SODIUM 100 MG CAPSULE PO PRN (07:49)
[2019-02-03 07:58] VITALS: BP 137/85
[2019-02-03 11:35] LABS: GLUCOMETER DEV NAME(LOC) 4E.2; GLUCOSE,POINT OF CARE 112 MG/DL (70-110)
[2019-02-03 12:36] VITALS: BP 131/74
[2019-02-03] MEDS ORDERED: TAMS-13 PO (13:57)
[2019-02-03 15:50] VITALS: BP 141/85
[2019-02-03 21:06] LABS: GLUCOMETER DEV NAME(LOC) 6N.2; GLUCOSE,POINT OF CARE 108 MG/DL (70-110)
== END 2019-02-03 18:48 | DRG 554 ==
LOC: EMS 20:39 → 4E 01-31 01:30
PROVIDERS: ADMIT Internal Medicine; ATTEND Internal Medicine
DX: M17.11 Unilateral primary osteoarthritis, right knee (principal); R29.6 Repeated falls; N40.0 Benign prostatic hyperplasia without lower urinary tract symptoms; J44.9 Chronic obstructive pulmonary disease, unspecified; I25.10 Atherosclerotic heart disease of native coronary artery without angina pectoris; G89.29 Other chronic pain; I12.9 Hypertensive chronic kidney disease with stage 1 through stage 4 chronic kidney disease, or unspecified chronic kidney disease; K21.9 Gastro-esophageal reflux disease without esophagitis; N18.9 Chronic kidney disease, unspecified; Z82.49 Family history of ischemic heart disease and other diseases of the circulatory system; Z82.5 Family history of asthma and other chronic lower respiratory diseases; Z86.73 Personal history of transient ischemic attack (TIA), and cerebral infarction without residual deficits; Z87.891 Personal history of nicotine dependence; Z95.5 Presence of coronary angioplasty implant and graft; Z79.899 Other long term (current) drug therapy; Z23 Encounter for immunization; W18.39XA Other fall on same level, initial encounter; Y93.89 Activity, other specified; Y92.89 Other specified places as the place of occurrence of the external cause; Y99.8 Other external cause status
CPT/HCPCS: 83036; 90686; 97110; 97162; 97530; G0378

== ENCOUNTER 2019-05-16 17:10 | Emergency (ER) | payer MEDICARE, OTHER ==
[~2019-05-16] VITALS: Ht 180.3 cm; Wt 76.4 kg
[~2019-05-16 17:10] MED LIST changes: -AMLO5TAB9 PO; +ASPI-728 PO; -ASPI81 PO; +AZITH500IV IV; +BENZ-51 PO; +CEFX1I IV; +DOCU-275 PO; +FINA-27 PO; -FINA5TAB41 PO; +FLUT1BLS IH; +GUAIF600 PO; +HEPA100D17 SQ; +IPRNEB NEB; -KDUR20 PO; +NIFE30TA98 PO; -NITR0.4T52 SL; -PHEN100C9 PO; -PRAS10TA6 PO; +PRED10 PO; +PRED20 PO; +PRED5 PO; -PREG75 PO; +TAMS-13 PO; -TAMS0.4C32 PO
[2019-05-16] MEDS ORDERED: HYDROCODONE/ACETAMINOPHEN 5-325 MG TABLET PO ONE (20:30)
[2019-05-16 21:00] VITALS: BP 158/95
== END 2019-05-16 21:25 | disposition home or self-care (01) ==
LOC: EMS 17:13
DX: M25.561 Pain in right knee (principal); I11.0 Hypertensive heart disease with heart failure; I50.9 Heart failure, unspecified; I25.10 Atherosclerotic heart disease of native coronary artery without angina pectoris; I25.2 Old myocardial infarction; J44.9 Chronic obstructive pulmonary disease, unspecified; M19.90 Unspecified osteoarthritis, unspecified site; Z86.73 Personal history of transient ischemic attack (TIA), and cerebral infarction without residual deficits; Z86.718 Personal history of other venous thrombosis and embolism; Z95.5 Presence of coronary angioplasty implant and graft; Z98.890 Other specified postprocedural states; Z87.891 Personal history of nicotine dependence; Z79.899 Other long term (current) drug therapy; Z79.82 Long term (current) use of aspirin

== ENCOUNTER 2019-07-13 12:28 | Emergency (ER) | payer MEDICARE ==
[~2019-07-13] VITALS: Ht 180.3 cm; Wt 80.9 kg
[~2019-07-13 12:28] MED LIST changes: -PRED10 PO; -PRED20 PO; -PRED5 PO
[2019-07-13 14:54] LABS: BASOPHILS % (AUTO) 0.7 % (0.0-2.0); EOSINOPHILS % (AUTO) 0.7 % (1.0-6.0); HEMOGLOBIN 12.4 g/dL (13.5-17.5); LYMPHOCYTES # (AUTO) 1.5 K/uL (1.0-4.8); LYMPHOCYTES % (AUTO) 28.4 % (22.0-44.0); MEAN CORPUSCULAR HEMOGLOBIN 24.1 pg (26.0-34.0); MEAN CORPUSCULAR HGB CONC 30.5 G/dL (31.0-37.0); MEAN CORPUSCULAR VOLUME 79 fL (80-100); MONOCYTES # (AUTO) 0.5 K/uL (0.1-1.0); MONOCYTES % (AUTO) 9.4 % (2.0-9.0); NEUTROPHILS # (AUTO) 3.3 K/uL (1.8-7.7); NEUTROPHILS % (AUTO) 60.8 % (40.0-70.0); PLATELET COUNT (AUTO) 272 K/uL (150-450); RED BLOOD CELL COUNT(AUTO) 5.15 MIL/uL (4.50-5.90); RED CELL DISTRIBUTION WIDTH 21.6 % (11.5-14.5)
[2019-07-13 15:06] LABS: HEMATOCRIT 40.3 % (41-53)
[2019-07-13 15:08] LABS: APPEARANCE,URINE CLEAR (CLEAR); BILIRUBIN,URINE NEGATIVE (NEGATIVE); GLUCOSE, URINE (UA) NEGATIVE (NEGATIVE); KETONES,URINE NEGATIVE (NEGATIVE); LEUKOCYTE ESTERASE ,URINE NEGATIVE (NEGATIVE); NITRATE,URINE NEGATIVE (NEGATIVE); OCCULT BLOOD,URINE NEGATIVE (NEGATIVE); PROTEIN,URINE SEE CONFIRM (NEGATIVE)
[2019-07-13] MEDS ORDERED: BARIUM SULFATE 0.1% SUSPENSION 450 ML BOTTLE PO ONE (15:15)
[2019-07-13 15:18] LABS: SULFOSALICYLIC ACID,URINE 1+ (Negative)
[2019-07-13 15:19] LABS: BACTERIA,URINE None Seen /HPF (None Seen); RBC,URINE 0-2 /HPF (0-2); WBC,URINE 0-2 /HPF (0-5)
[2019-07-13 15:26] LABS: ANION GAP 12 mmol/L (8-16); CARBON DIOXIDE 26 mmol/L (22-29); CHLORIDE 111 mmol/L (98-107); CREATININE 1.01 mg/dL (0.60-1.30); GLUCOSE,RANDOM 105 mg/dL (70-110); POTASSIUM 3.9 mmol/L (3.5-5.1); SODIUM SERUM 149 mmol/L (136-145); UREA NITROGEN, BLOOD 10 mg/dL (7-18)
[2019-07-13 15:27] LABS: GLOMERULAR FILTR. RATE CALC > 60 mL/min (>60)
[2019-07-13 15:31] LABS: ALANINE AMINOTRANSFERASE 27 U/L (12-78); ALBUMIN 3.7 g/dL (3.4-5.0); ALKALINE PHOSPHATASE 74 U/L (46-116); ASPARTATE AMINOTRANSFERASE 20 U/L (15-37); BILIRUBIN,TOTAL 0.4 mg/dL (0.1-1.0); LIPASE 79 U/L (73-393); TOTAL PROTEIN, SERUM 7.3 g/dL (6.4-8.2)
[2019-07-13] MEDS ORDERED: DOCUSATE SODIUM 100 MG CAPSULE PO ONE (15:45)
[2019-07-13 17:49] VITALS: BP 165/115
[2019-07-13] MEDS ORDERED: SODIUM PHOS/SODIUM BIPHOS 133 ML ENEMA PR ONE (18:00)
== END 2019-07-13 21:30 | disposition home or self-care (01) ==
LOC: EMS 12:30
DX: K59.00 Constipation, unspecified (principal); I11.0 Hypertensive heart disease with heart failure; I50.9 Heart failure, unspecified
CPT/HCPCS: 74176; 93005

== ENCOUNTER 2019-07-27 01:16 | Inpatient (IN) | payer MEDICARE, MEDICAID ==
[~2019-07-27] VITALS: Ht 180.3 cm; Wt 77.3 kg
[2019-07-27 02:42] LABS: BASOPHILS % (AUTO) 0.8 % (0.0-2.0); EOSINOPHILS % (AUTO) 2.3 % (1.0-6.0); LYMPHOCYTES # (AUTO) 1.8 K/uL (1.0-4.8); LYMPHOCYTES % (AUTO) 32.9 % (22.0-44.0); MEAN CORPUSCULAR HEMOGLOBIN 23.9 pg (26.0-34.0); MEAN CORPUSCULAR HGB CONC 30.2 G/dL (31.0-37.0); MEAN CORPUSCULAR VOLUME 79 fL (80-100); MONOCYTES # (AUTO) 0.8 K/uL (0.1-1.0); MONOCYTES % (AUTO) 15.7 % (2.0-9.0); NEUTROPHILS # (AUTO) 2.6 K/uL (1.8-7.7); NEUTROPHILS % (AUTO) 48.3 % (40.0-70.0); PLATELET COUNT (AUTO) 278 K/uL (150-450); RED BLOOD CELL COUNT(AUTO) 5.42 MIL/uL (4.50-5.90); RED CELL DISTRIBUTION WIDTH 20.2 % (11.5-14.5)
[2019-07-27 02:46] LABS: ANION GAP 10 mmol/L (8-16); CALCIUM, TOTAL 10.7 mg/dL (8.8-10.5); CARBON DIOXIDE 28 mmol/L (22-29); CHLORIDE 109 mmol/L (98-107); CREATININE 1.17 mg/dL (0.60-1.30); GLUCOSE,RANDOM 124 mg/dL (70-110); POTASSIUM 3.5 mmol/L (3.5-5.1); SODIUM SERUM 147 mmol/L (136-145); UREA NITROGEN, BLOOD 14 mg/dL (7-18)
[2019-07-27 02:47] LABS: GLOMERULAR FILTR. RATE CALC > 60 mL/min (>60)
[2019-07-27 02:55] LABS: LACTIC ACID 1.5 mmol/L (0.4-2.0)
[2019-07-27 03:05] LABS: TROPONIN I < 0.02 ng/mL (0.00-0.05)
[2019-07-27 03:11] LABS: ALANINE AMINOTRANSFERASE 28 U/L (12-78); ALKALINE PHOSPHATASE 73 U/L (46-116); ASPARTATE AMINOTRANSFERASE 23 U/L (15-37); BILIRUBIN,TOTAL 0.6 mg/dL (0.1-1.0); CREATINE KINASE, TOTAL ONLY 341 U/L (39-308)
[2019-07-27 03:13] LABS: AMMONIA < 10 umol/L (11-32)
[2019-07-27] MEDS ORDERED: ACETAMINOPHEN 325 MG TABLET PO PRN ×2 (03:45→10:30)
[2019-07-27] MEDS ORDERED: 0.9% SODIUM CHLORIDE 10 ML SYRINGE IVP PRN (03:45)
[2019-07-27] MEDS ORDERED: NIFEdipine 10 MG CAPSULE PO ONE (05:30)
[2019-07-27] MEDS ORDERED: BISACODYL 10 MG RECTAL RECTAL SUPPOSITORY PR PRN (10:30)
[2019-07-27] MEDS ORDERED: MORPHINE SULFATE 2 MG/ML SYRINGE IVP PRN (10:30)
[2019-07-27] MEDS ORDERED: ONDANSETRON HCL 4 MG/2 ML VIAL IVP PRN (10:30)
[2019-07-27] MEDS ORDERED: MAGNESIUM HYDROXIDE SUSPENSION 30 ML UDCUP PO PRN (10:30)
[2019-07-27] MEDS ORDERED: SODIUM CHLORIDE 0.45% 500 ML IV ONE (10:30)
[2019-07-27 11:27] VITALS: BP 151/74
[2019-07-27 11:31] VITALS: BP 162/100
[2019-07-27 13:32] VITALS: BP 145/80
[2019-07-27 14:17] LABS: APPEARANCE,URINE CLOUDY (CLEAR); GLUCOSE, URINE (UA) NEGATIVE (NEGATIVE); KETONES,URINE NEGATIVE (NEGATIVE); LEUKOCYTE ESTERASE ,URINE TRACE (NEGATIVE); NITRATE,URINE NEGATIVE (NEGATIVE); OCCULT BLOOD,URINE NEGATIVE (NEGATIVE); PROTEIN,URINE NEGATIVE (NEGATIVE)
[2019-07-27 14:20] LABS: BILIRUBIN,URINE PRELIM. POSITIVE (NEGATIVE)
[2019-07-27 14:22] LABS: AMPHET/METH SCREEN,URINE NEGATIVE (NEGATIVE); BARBITURATE SCREEN, URINE NEGATIVE (NEGATIVE); BENZODIAZEPINES SCREEN,URINE NEGATIVE (NEGATIVE); CANNABINOID SCREEN,URINE NEGATIVE (NEGATIVE); COCAINE SCREEN,URINE POSITIVE (NEGATIVE); METHADONE SCREEN, URINE NEGATIVE (NEGATIVE); OPIATE SCREEN,URINE NEGATIVE (NEGATIVE); PHENCYCLIDINE SCREEN,URINE NEGATIVE (NEGATIVE)
[2019-07-27 14:30] LABS: BACTERIA,URINE None Seen /HPF (None Seen); RBC,URINE None Seen /HPF (0-2)
[2019-07-27 14:31] LABS: CALCIUM OXALATE CRYSTALS,UR Many /LPF (None Seen); SQUAMOUS EPITHELIAL CELL,UR Few /LPF (None Seen)
[2019-07-27 15:50] VITALS: BP 159/99
[2019-07-27] MEDS: HEPARIN SODIUM,PORCINE 5,000 UNITS/ML VIAL SQ SCH ×3 (16:00→23:15)
[2019-07-27 19:30] VITALS: BP 145/91
[2019-07-27] MEDS: DOCUSATE SODIUM 100 MG CAPSULE PO SCH (19:40)
[2019-07-27] MEDS: ZOLPIDEM TARTRATE 5 MG TABLET PO PRN (19:45)
[2019-07-27] MEDS: HYDROCODONE/ACETAMINOPHEN 5-325 MG TABLET PO PRN (19:46)
[2019-07-27 23:22] VITALS: BP 160/97
[2019-07-27] MEDS ORDERED: NIFEdipine 30 MG ER TABLET PO ONE (23:45)
[2019-07-28 04:43] VITALS: BP 155/94
[2019-07-28 07:29] VITALS: BP 158/101
[2019-07-28] MEDS: NIFEdipine 30 MG ER TABLET PO SCH ×2 (07:55→19:54)
[2019-07-28] MEDS: DOCUSATE SODIUM 100 MG CAPSULE PO SCH ×2 (07:55→19:54)
[2019-07-28] MEDS: PANTOPRAZOLE SODIUM 40 MG DR TABLET PO SCH (07:55)
[2019-07-28] MEDS: HEPARIN SODIUM,PORCINE 5,000 UNITS/ML VIAL SQ SCH ×3 (07:58→16:00)
[2019-07-28] MEDS: HYDROCODONE/ACETAMINOPHEN 5-325 MG TABLET PO PRN ×2 (08:00→19:52)
[2019-07-28 11:30] VITALS: BP 167/95
[2019-07-28 15:43] VITALS: BP 135/79
[2019-07-28 19:31] VITALS: BP 154/81
[2019-07-29 00:34] VITALS: BP 153/92
[2019-07-29 03:04] VITALS: BP 153/87
[2019-07-29] MEDS: HYDROCODONE/ACETAMINOPHEN 5-325 MG TABLET PO PRN ×4 (03:04→20:19)
[2019-07-29] MEDS ORDERED: ALBUTEROL SULFATE HFA 90 MCG/PUFF 8 GM INHALER IH PRN (04:00)
[2019-07-29 07:55] LABS: ANION GAP 12 mmol/L (8-16); CALCIUM, TOTAL 9.7 mg/dL (8.8-10.5); CARBON DIOXIDE 24 mmol/L (22-29); CHLORIDE 108 mmol/L (98-107); CREATININE 0.93 mg/dL (0.60-1.30); GLUCOSE,RANDOM 84 mg/dL (70-110); POTASSIUM 3.7 mmol/L (3.5-5.1); SODIUM SERUM 144 mmol/L (136-145); UREA NITROGEN, BLOOD 14 mg/dL (7-18)
[2019-07-29 07:57] LABS: GLOMERULAR FILTR. RATE CALC > 60 mL/min (>60)
[2019-07-29] MEDS: HEPARIN SODIUM,PORCINE 5,000 UNITS/ML VIAL SQ SCH ×4 (08:00→23:38)
[2019-07-29 08:13] VITALS: BP 148/97
[2019-07-29] MEDS: NIFEdipine 30 MG ER TABLET PO SCH ×2 (08:22→20:18)
[2019-07-29] MEDS: PANTOPRAZOLE SODIUM 40 MG DR TABLET PO SCH (08:29)
[2019-07-29] MEDS: DOCUSATE SODIUM 100 MG CAPSULE PO SCH ×2 (08:29→20:18)
[2019-07-29 11:25] VITALS: BP 168/94
[2019-07-29 15:45] VITALS: BP 155/88
[2019-07-29 19:49] VITALS: BP 159/85
[2019-07-29] MEDS: ZOLPIDEM TARTRATE 5 MG TABLET PO PRN (20:19)
[2019-07-30 00:07] VITALS: BP 156/87
[2019-07-30 04:30] VITALS: BP 149/85
[2019-07-30] MEDS: DOCUSATE SODIUM 100 MG CAPSULE PO SCH (07:57)
[2019-07-30] MEDS: NIFEdipine 30 MG ER TABLET PO SCH (07:57)
[2019-07-30] MEDS: HYDROCODONE/ACETAMINOPHEN 5-325 MG TABLET PO PRN ×2 (07:57→16:35)
[2019-07-30] MEDS: PANTOPRAZOLE SODIUM 40 MG DR TABLET PO SCH (07:58)
[2019-07-30] MEDS: HEPARIN SODIUM,PORCINE 5,000 UNITS/ML VIAL SQ SCH ×2 (08:00→16:00)
[2019-07-30 08:03] VITALS: BP 176/98
[2019-07-30 11:20] VITALS: BP 149/87
[2019-07-30] MEDS ORDERED: NIFE-40 PO (13:23)
[2019-07-30 15:54] VITALS: BP 147/98
== END 2019-07-30 18:26 | DRG 92 ==
LOC: EMS 01:16 → 6N 03:30
PROVIDERS: ADMIT Internal Medicine; ATTEND Internal Medicine
DX: G92 Toxic encephalopathy (principal); E87.0 Hyperosmolality and hypernatremia; I25.10 Atherosclerotic heart disease of native coronary artery without angina pectoris; I11.0 Hypertensive heart disease with heart failure; I50.9 Heart failure, unspecified; J44.9 Chronic obstructive pulmonary disease, unspecified; N40.0 Benign prostatic hyperplasia without lower urinary tract symptoms; M19.90 Unspecified osteoarthritis, unspecified site; F03.90 Unspecified dementia, unspecified severity, without behavioral disturbance, psychotic disturbance, mood disturbance, and anxiety; K21.9 Gastro-esophageal reflux disease without esophagitis; M10.9 Gout, unspecified; K59.00 Constipation, unspecified; Z87.440 Personal history of urinary (tract) infections; I25.2 Old myocardial infarction; Z86.73 Personal history of transient ischemic attack (TIA), and cerebral infarction without residual deficits; Z87.891 Personal history of nicotine dependence
CPT/HCPCS: 70450; 83605; 93005; 97162; 97166; 97530; 97535; G0480; J1644; J3535

== ENCOUNTER 2019-09-08 10:36 | Emergency (ER) | payer MEDICARE, MEDICAID ==
[~2019-09-08] VITALS: Ht 180.3 cm; Wt 77.3 kg
[~2019-09-08 10:36] MED LIST changes: -AZITH500IV IV; -CEFX1I IV; -DOCU-275 PO; -HEPA100D17 SQ; +NIFE-40 PO
[2019-09-08] MEDS ORDERED: MULT-12 PO (11:16)
[2019-09-08 12:10] VITALS: BP 148/98
== END 2019-09-08 12:16 | disposition home or self-care (01) ==
LOC: EMS 10:44
DX: M25.561 Pain in right knee (principal); G89.29 Other chronic pain; I25.10 Atherosclerotic heart disease of native coronary artery without angina pectoris; I11.0 Hypertensive heart disease with heart failure; I50.9 Heart failure, unspecified; J44.9 Chronic obstructive pulmonary disease, unspecified; K21.9 Gastro-esophageal reflux disease without esophagitis; I25.2 Old myocardial infarction; F17.210 Nicotine dependence, cigarettes, uncomplicated; Z86.73 Personal history of transient ischemic attack (TIA), and cerebral infarction without residual deficits; Z79.82 Long term (current) use of aspirin

== ENCOUNTER 2019-09-20 09:50 | Emergency (ER) | payer MEDICARE, MEDICAID ==
[~2019-09-20] VITALS: Ht 180.3 cm; Wt 77.3 kg
[~2019-09-20 09:50] MED LIST changes: -ADV250 IH; -BENZ-51 PO; -DOCU250C90 PO; -GUAIF600 PO; -IPRA4AER IH; +MULT-12 PO; -NIFE30TA98 PO
[2019-09-20] MEDS ORDERED: KETOROLAC TROMETHAMINE 10 MG TABLET PO ONE (11:00)
[2019-09-20] MEDS ORDERED: PANTOPRAZOLE SODIUM 40 MG DR TABLET PO ONE (11:00)
[2019-09-20 11:31] VITALS: BP 123/87
== END 2019-09-20 11:55 | disposition home or self-care (01) ==
LOC: EMS 09:56
DX: M25.561 Pain in right knee (principal); G89.29 Other chronic pain; I25.10 Atherosclerotic heart disease of native coronary artery without angina pectoris; J44.9 Chronic obstructive pulmonary disease, unspecified; K21.9 Gastro-esophageal reflux disease without esophagitis; I25.2 Old myocardial infarction; I11.0 Hypertensive heart disease with heart failure; I50.9 Heart failure, unspecified; F17.210 Nicotine dependence, cigarettes, uncomplicated; Z86.73 Personal history of transient ischemic attack (TIA), and cerebral infarction without residual deficits; Z79.82 Long term (current) use of aspirin

== ENCOUNTER 2019-09-24 09:15 | Emergency (ER) | payer MEDICARE, MEDICAID ==
[~2019-09-24] VITALS: Ht 180.3 cm; Wt 78.2 kg
[2019-09-24 10:54] VITALS: BP 139/81
[2019-09-24] MEDS ORDERED: LIDOCAINE 5% TRANSDERMAL PATCH TD ONE (11:00)
== END 2019-09-24 11:54 | disposition home or self-care (01) ==
LOC: EMS 09:20
DX: G89.29 Other chronic pain (principal); M25.561 Pain in right knee; M25.562 Pain in left knee; F17.210 Nicotine dependence, cigarettes, uncomplicated
CPT/HCPCS: 99406

== ENCOUNTER 2019-10-17 11:48 | Emergency (ER) | payer MEDICARE, MEDICAID ==
[~2019-10-17] VITALS: Ht 180.3 cm; Wt 78.6 kg
[2019-10-17 11:49] VITALS: BP 150/84
[2019-10-17] MEDS ORDERED: ACETAMINOPHEN 500 MG TABLET PO ONE (12:30)
[2019-10-17] MEDS ORDERED: LIDOCAINE 5% TRANSDERMAL PATCH TD ONE (12:30)
== END 2019-10-17 13:53 | disposition home or self-care (01) ==
LOC: EMS 11:49
DX: M25.561 Pain in right knee (principal); M25.562 Pain in left knee; I25.10 Atherosclerotic heart disease of native coronary artery without angina pectoris; I11.0 Hypertensive heart disease with heart failure; I50.9 Heart failure, unspecified; K21.9 Gastro-esophageal reflux disease without esophagitis; I25.2 Old myocardial infarction; F12.90 Cannabis use, unspecified, uncomplicated; F17.210 Nicotine dependence, cigarettes, uncomplicated; Z86.73 Personal history of transient ischemic attack (TIA), and cerebral infarction without residual deficits; Z79.82 Long term (current) use of aspirin
CPT/HCPCS: 99406

== ENCOUNTER 2019-11-07 10:14 | Emergency (ER) | payer MEDICARE, MEDICAID ==
[~2019-11-07] VITALS: Ht 180.3 cm; Wt 78.2 kg
[2019-11-07 10:18] VITALS: BP 152/107
== END 2019-11-07 10:57 | disposition home or self-care (01) ==
LOC: EMS 10:21
DX: M25.562 Pain in left knee (principal); M25.561 Pain in right knee; G89.29 Other chronic pain; I25.10 Atherosclerotic heart disease of native coronary artery without angina pectoris; J44.9 Chronic obstructive pulmonary disease, unspecified; K21.9 Gastro-esophageal reflux disease without esophagitis; I25.2 Old myocardial infarction; F17.210 Nicotine dependence, cigarettes, uncomplicated; F12.90 Cannabis use, unspecified, uncomplicated; I11.0 Hypertensive heart disease with heart failure; I50.9 Heart failure, unspecified; Z86.73 Personal history of transient ischemic attack (TIA), and cerebral infarction without residual deficits

== ENCOUNTER 2020-04-20 16:35 | Emergency (ER) | payer MEDICARE, MEDICAID ==
[~2020-04-20] VITALS: Ht 175.3 cm; Wt 79.5 kg
[~2020-04-20 16:35] MED LIST changes: -ASPI-728 PO; -MULT-12 PO
[2020-04-20] MEDS ORDERED: ASPIRIN 81 MG CHEWABLE TABLET PO ONE (17:00)
[2020-04-20 17:59] LABS: EOSINOPHILS % (AUTO) 3.1 % (1.0-6.0); HEMATOCRIT 32.1 % (41-53); HEMOGLOBIN 9.4 g/dL (13.5-17.5); LYMPHOCYTES # (AUTO) 1.4 K/uL (1.0-4.8); MEAN CORPUSCULAR HEMOGLOBIN 21.6 pg (26.0-34.0); MEAN CORPUSCULAR HGB CONC 29.3 G/dL (31.0-37.0); MEAN CORPUSCULAR VOLUME 74 fL (80-100); MONOCYTES # (AUTO) 0.5 K/uL (0.1-1.0); MONOCYTES % (AUTO) 10.7 % (2.0-9.0); NEUTROPHILS # (AUTO) 2.6 K/uL (1.8-7.7); NEUTROPHILS % (AUTO) 55.2 % (40.0-70.0); PLATELET COUNT (AUTO) 241 K/uL (150-450); RED BLOOD CELL COUNT(AUTO) 4.36 MIL/uL (4.50-5.90); RED CELL DISTRIBUTION WIDTH 27.4 % (11.5-14.5)
[2020-04-20 18:10] LABS: ANION GAP 11 mmol/L (8-16); CALCIUM, TOTAL 9.9 mg/dL (8.8-10.5); CARBON DIOXIDE 25 mmol/L (22-29); CHLORIDE 108 mmol/L (98-107); CREATININE 0.97 mg/dL (0.60-1.30); GLUCOSE,RANDOM 113 mg/dL (70-110); SODIUM SERUM 144 mmol/L (136-145); UREA NITROGEN, BLOOD 15 mg/dL (7-18)
[2020-04-20 18:13] LABS: GLOMERULAR FILTR. RATE CALC > 60 mL/min (>60)
[2020-04-20] MEDS ORDERED: ACETAMINOPHEN 325 MG TABLET PO ONE (18:30)
[2020-04-20 18:35] LABS: ALANINE AMINOTRANSFERASE 15 U/L (12-78); ALBUMIN 3.6 g/dL (3.4-5.0); ALKALINE PHOSPHATASE 119 U/L (46-116); ASPARTATE AMINOTRANSFERASE 11 U/L (15-37); BILIRUBIN,TOTAL 0.3 mg/dL (0.1-1.0); CREATINE KINASE, TOTAL ONLY 160 U/L (39-308)
[2020-04-20 18:39] LABS: B-TYPE NATRIURETIC PEPTIDE 61 pg/mL (0-100)
[2020-04-20 19:13] LABS: COVID AG,FIA SOURCE NASOPHARYNGEAL
[2020-04-20 19:30] VITALS: BP 141/74
== END 2020-04-20 23:25 | disposition home or self-care (01) ==
LOC: EMS 16:35
DX: R07.89 Other chest pain (principal); I25.10 Atherosclerotic heart disease of native coronary artery without angina pectoris; J44.9 Chronic obstructive pulmonary disease, unspecified; I11.0 Hypertensive heart disease with heart failure; I50.9 Heart failure, unspecified; K21.9 Gastro-esophageal reflux disease without esophagitis; I25.2 Old myocardial infarction; F12.90 Cannabis use, unspecified, uncomplicated; Z20.828 Contact with and (suspected) exposure to other viral communicable diseases; Z87.891 Personal history of nicotine dependence
CPT/HCPCS: 36415; 71045; 80053; 82550; 83880; 84484; 85025; 87426; 93005; 99285; G0480; U0003

== ENCOUNTER 2020-05-01 20:58 | Emergency (ER) | payer MEDICARE, MEDICAID ==
[~2020-05-01] VITALS: Ht 180.3 cm; Wt 70.5 kg
[2020-05-02 00:36] VITALS: BP 180/82
[2020-05-02] MEDS ORDERED: MAG HYDROX/AL HYDROX/SIMETH 30 ML SUSP UDCUP PO ONE (01:30)
[2020-05-02] MEDS ORDERED: ONDANSETRON HCL 4 MG TABLET PO ONE (01:30)
[2020-05-02] MEDS ORDERED: FAMOTIDINE 20 MG TABLET PO ONE (01:30)
[2020-05-02] MEDS ORDERED: ACETAMINOPHEN 500 MG TABLET PO ONE (01:30)
== END 2020-05-02 05:24 | disposition home or self-care (01) ==
LOC: EMS 21:02
DX: M25.572 Pain in left ankle and joints of left foot (principal); I11.0 Hypertensive heart disease with heart failure; I50.9 Heart failure, unspecified; Z87.891 Personal history of nicotine dependence
CPT/HCPCS: 73610; 73630; 99284; Q0162

== ENCOUNTER 2020-08-31 17:01 | Emergency (ER) | payer MEDICARE, OTHER ==
[~2020-08-31] VITALS: Ht 177.8 cm; Wt 75.0 kg
[~2020-08-31 17:01] MED LIST changes: +ACET-3207 PO; +ASPI81TA87 PO; +BISA-151 PO; +CEFU250T87 PO; +HYDR-4723 PO; +HYDR50TA36 PO; +IPRNEB IH; +LANS15CA17 PO; +MOM30 PO; -OMEP20 PO; +PREG75 PO
[2020-08-31] MEDS ORDERED: HYDROCODONE/ACETAMINOPHEN 5-325 MG TABLET PO ONE (17:15)
[2020-08-31] MEDS ORDERED: ASPIRIN 81 MG CHEWABLE TABLET PO ONE (17:15)
[2020-08-31 17:36] LABS: BASOPHILS % (AUTO) 0.6 % (0.0-2.0); HEMATOCRIT 38.7 % (41-53); HEMOGLOBIN 12.1 g/dL (13.5-17.5); LYMPHOCYTES # (AUTO) 1.4 K/uL (1.0-4.8); LYMPHOCYTES % (AUTO) 36.3 % (22.0-44.0); MEAN CORPUSCULAR HEMOGLOBIN 24.7 pg (26.0-34.0); MEAN CORPUSCULAR HGB CONC 31.2 G/dL (31.0-37.0); MEAN CORPUSCULAR VOLUME 79 fL (80-100); MONOCYTES # (AUTO) 0.4 K/uL (0.1-1.0); MONOCYTES % (AUTO) 10.1 % (2.0-9.0); PLATELET COUNT (AUTO) 271 K/uL (150-450); RED BLOOD CELL COUNT(AUTO) 4.88 MIL/uL (4.50-5.90); RED CELL DISTRIBUTION WIDTH 18.7 % (11.5-14.5)
[2020-08-31 17:44] LABS: ANION GAP 8 mmol/L (8-16); CALCIUM, TOTAL 9.6 mg/dL (8.8-10.5); CARBON DIOXIDE 28 mmol/L (22-29); CHLORIDE 107 mmol/L (98-107); CREATININE 1.12 mg/dL (0.60-1.30); GLUCOSE,RANDOM 103 mg/dL (70-110); POTASSIUM 3.9 mmol/L (3.5-5.1); SODIUM SERUM 143 mmol/L (136-145); UREA NITROGEN, BLOOD 15 mg/dL (7-18)
[2020-08-31 17:45] LABS: GLOMERULAR FILTR. RATE CALC > 60 mL/min (>60)
[2020-08-31 18:10] VITALS: BP 175/96
== END 2020-08-31 18:24 | disposition home or self-care (01) ==
LOC: EMS 17:09
DX: R07.2 Precordial pain (principal); M25.561 Pain in right knee; M25.562 Pain in left knee; G89.29 Other chronic pain; I25.10 Atherosclerotic heart disease of native coronary artery without angina pectoris; I11.0 Hypertensive heart disease with heart failure; I50.9 Heart failure, unspecified; K21.9 Gastro-esophageal reflux disease without esophagitis; F17.210 Nicotine dependence, cigarettes, uncomplicated; J44.9 Chronic obstructive pulmonary disease, unspecified; Z79.82 Long term (current) use of aspirin
CPT/HCPCS: 71045; 80048; 84484; 85025; 93005; 99285; 36415-L1; 36415-TC

== ENCOUNTER 2020-10-25 15:09 | Emergency (ER) | payer MEDICARE, OTHER ==
[~2020-10-25] VITALS: Ht 180.3 cm; Wt 68.2 kg
[~2020-10-25 15:09] MED LIST changes: -ACET-3207 PO; -BISA-151 PO; -CEFU250T87 PO; -HYDR-4723 PO; -IPRNEB IH
[2020-10-25 15:32] VITALS: BP 190/98
== END 2020-10-25 18:08 | disposition left against medical advice (07) ==
LOC: EMS 15:11
DX: R33.9 Retention of urine, unspecified (principal)

== ENCOUNTER 2020-12-14 15:19 | Emergency (ER) | payer MEDICARE, OTHER ==
[~2020-12-14] VITALS: Ht 180.3 cm; Wt 68.2 kg
[2020-12-14] MEDS ORDERED: ASCO500 PO (17:10)
[2020-12-14] MEDS ORDERED: HYDR-4723 PO (17:10)
[2020-12-14] MEDS ORDERED: TAMS-13 PO (17:10)
[2020-12-14] MEDS ORDERED: NIFE-79 PO (17:10)
[2020-12-14] MEDS ORDERED: ZINC220C14 PO (17:10)
[2020-12-14] MEDS ORDERED: PREG75 PO (17:10)
[2020-12-14] MEDS ORDERED: ONDA-104 PO (17:10)
[2020-12-14 17:18] LABS: APPEARANCE,URINE CLOUDY (CLEAR); BILIRUBIN,URINE NEGATIVE (NEGATIVE); GLUCOSE, URINE (UA) NEGATIVE (NEGATIVE); KETONES,URINE NEGATIVE (NEGATIVE); LEUKOCYTE ESTERASE ,URINE TRACE (NEGATIVE); NITRATE,URINE NEGATIVE (NEGATIVE); OCCULT BLOOD,URINE MODERATE (NEGATIVE); PROTEIN,URINE NEGATIVE (NEGATIVE)
[2020-12-14 18:21] LABS: BACTERIA,URINE Few /HPF (None Seen); SQUAMOUS EPITHELIAL CELL,UR Few /LPF (None Seen)
[2020-12-14 18:22] LABS: BASOPHILS % (AUTO) 0.7 % (0.0-2.0); EOSINOPHILS % (AUTO) 2.5 % (1.0-6.0); HEMATOCRIT 41.6 % (41-53); HEMOGLOBIN 13.1 g/dL (13.5-17.5); LYMPHOCYTES # (AUTO) 1.8 K/uL (1.0-4.8); LYMPHOCYTES % (AUTO) 35.3 % (22.0-44.0); MEAN CORPUSCULAR HEMOGLOBIN 26.6 pg (26.0-34.0); MEAN CORPUSCULAR HGB CONC 31.4 G/dL (31.0-37.0); MEAN CORPUSCULAR VOLUME 85 fL (80-100); MONOCYTES # (AUTO) 0.5 K/uL (0.1-1.0); MONOCYTES % (AUTO) 10.6 % (2.0-9.0); NEUTROPHILS # (AUTO) 2.6 K/uL (1.8-7.7); NEUTROPHILS % (AUTO) 50.9 % (40.0-70.0); PLATELET COUNT (AUTO) 191 K/uL (150-450); RED BLOOD CELL COUNT(AUTO) 4.91 MIL/uL (4.50-5.90)
[2020-12-14 18:22] LABS: CALCIUM OXALATE CRYSTALS,UR Moderate /LPF (None Seen)
[2020-12-14] MEDS ORDERED: HYDROCODONE/ACETAMINOPHEN 5-325 MG TABLET PO ONE (18:30)
[2020-12-14 18:48] LABS: ANION GAP 12 mmol/L (8-16); CALCIUM, TOTAL 9.5 mg/dL (8.8-10.5); CARBON DIOXIDE 26 mmol/L (22-29); CHLORIDE 109 mmol/L (98-107); CREATININE 0.85 mg/dL (0.60-1.30); GLUCOSE,RANDOM 90 mg/dL (70-110); POTASSIUM 4.1 mmol/L (3.5-5.1); SODIUM SERUM 147 mmol/L (136-145); UREA NITROGEN, BLOOD 16 mg/dL (7-18)
[2020-12-14 18:51] LABS: GLOMERULAR FILTR. RATE CALC > 60 mL/min (>60)
[2020-12-14 18:52] LABS: ALANINE AMINOTRANSFERASE 13 U/L (12-78); ALBUMIN 3.6 g/dL (3.4-5.0); ALKALINE PHOSPHATASE 120 U/L (46-116); ASPARTATE AMINOTRANSFERASE 8 U/L (15-37); BILIRUBIN,TOTAL 0.2 mg/dL (0.1-1.0); TOTAL PROTEIN, SERUM 7.4 g/dL (6.4-8.2)
[2020-12-14] MEDS ORDERED: TAMSULOSIN HCL 0.4 MG CAPSULE PO ONE (20:45)
[2020-12-14] MEDS ORDERED: SODIUM CHLORIDE 0.9% 1,000 ML IV ONE (20:45)
[2020-12-14] MEDS ORDERED: KETOROLAC TROMETHAMINE 30 MG/ML VIAL IVP ONE (20:45)
[2020-12-14] MEDS ORDERED: SULFAMETHOX/TRIMETH DS 800-160 MG/TABLET PO ONE (21:00)
[2020-12-14] MEDS ORDERED: KETOROLAC TROMETHAMINE 30 MG/ML VIAL IM ONE (21:45)
[2020-12-14 22:47] VITALS: BP 170/95
== END 2020-12-14 23:08 ==
LOC: EMS 15:24
DX: N20.1 Calculus of ureter (principal); I25.10 Atherosclerotic heart disease of native coronary artery without angina pectoris; I11.0 Hypertensive heart disease with heart failure; I50.9 Heart failure, unspecified; K21.9 Gastro-esophageal reflux disease without esophagitis; I25.2 Old myocardial infarction; F17.210 Nicotine dependence, cigarettes, uncomplicated; Z86.73 Personal history of transient ischemic attack (TIA), and cerebral infarction without residual deficits
CPT/HCPCS: 36415; 74176; 80053; 81001; 85025; 96372; 99285; J1885; J7030

== ENCOUNTER 2021-01-04 11:39 | Emergency (ER) | payer MEDICARE, OTHER ==
[~2021-01-04] VITALS: Ht 180.3 cm; Wt 77.3 kg
[~2021-01-04 11:39] MED LIST changes: +ASCO500 PO; -ASPI81TA87 PO; -FINA-27 PO; -FLUT1BLS IH; +HYDR-4723 PO; -IPRNEB NEB; -LANS15CA17 PO; -MOM30 PO; -NIFE-40 PO; +NIFE-79 PO; +ONDA-104 PO; +ZINC220C14 PO
[2021-01-04 14:12] VITALS: BP 176/97
== END 2021-01-04 14:23 | disposition home or self-care (01) ==
LOC: EMS 11:41
DX: N63.0 Unspecified lump in unspecified breast (principal); I11.0 Hypertensive heart disease with heart failure; I50.9 Heart failure, unspecified; I25.10 Atherosclerotic heart disease of native coronary artery without angina pectoris; K21.9 Gastro-esophageal reflux disease without esophagitis; I25.2 Old myocardial infarction; F17.210 Nicotine dependence, cigarettes, uncomplicated; Z79.899 Other long term (current) drug therapy
CPT/HCPCS: 99281; Z7502

== ENCOUNTER 2021-01-09 09:41 | Emergency (ER) | payer MEDICARE, OTHER ==
[~2021-01-09] VITALS: Ht 180.3 cm; Wt 70.5 kg
[2021-01-09] MEDS ORDERED: MINERAL OIL 133 ML ENEMA PR ONE (10:00)
[2021-01-09] MEDS ORDERED: BACITRACIN 0.9 GM PACKET OINTMENT TP ONE (10:45)
[2021-01-09 11:32] VITALS: BP 166/99
== END 2021-01-09 11:34 | disposition home or self-care (01) ==
LOC: EMS 09:43
DX: K59.00 Constipation, unspecified (principal); R33.9 Retention of urine, unspecified; I25.10 Atherosclerotic heart disease of native coronary artery without angina pectoris; J44.9 Chronic obstructive pulmonary disease, unspecified; I25.2 Old myocardial infarction; K21.9 Gastro-esophageal reflux disease without esophagitis; I11.0 Hypertensive heart disease with heart failure; I50.9 Heart failure, unspecified; F17.210 Nicotine dependence, cigarettes, uncomplicated; Z86.73 Personal history of transient ischemic attack (TIA), and cerebral infarction without residual deficits
CPT/HCPCS: 51702; 99284; Z7502; Z7610

== ENCOUNTER 2021-01-12 08:46 | Emergency (ER) | payer MEDICARE, OTHER ==
[~2021-01-12] VITALS: Ht 180.3 cm; Wt 72.7 kg
[2021-01-12 08:49] VITALS: BP 196/117
== END 2021-01-12 11:21 | disposition home or self-care (01) ==
LOC: EMS 08:51
DX: K59.00 Constipation, unspecified (principal); N39.0 Urinary tract infection, site not specified; I11.0 Hypertensive heart disease with heart failure; I50.9 Heart failure, unspecified; J44.9 Chronic obstructive pulmonary disease, unspecified; K21.9 Gastro-esophageal reflux disease without esophagitis; F17.210 Nicotine dependence, cigarettes, uncomplicated; Z79.899 Other long term (current) drug therapy
CPT/HCPCS: 99282; Z7502

== ENCOUNTER 2021-05-25 11:47 | Emergency (ER) | payer MEDICARE, OTHER ==
[~2021-05-25] VITALS: Ht 180.3 cm; Wt 68.2 kg
[~2021-05-25 11:47] MED LIST changes: +AZIT-104 PO; -NIFE-79 PO
[2021-05-25 12:07] VITALS: BP 119/73
[2021-05-25 14:43] LABS: BILIRUBIN,URINE NEGATIVE (NEGATIVE); GLUCOSE, URINE (UA) NEGATIVE (NEGATIVE); KETONES,URINE NEGATIVE (NEGATIVE); LEUKOCYTE ESTERASE ,URINE LARGE (NEGATIVE); NITRATE,URINE NEGATIVE (NEGATIVE); OCCULT BLOOD,URINE MODERATE (NEGATIVE); PH,URINE 6.5 (5.0-8.0); PROTEIN,URINE TRACE (NEGATIVE)
[2021-05-25 14:44] LABS: APPEARANCE,URINE CLOUDY (CLEAR)
[2021-05-25 14:51] LABS: BACTERIA,URINE Many /HPF (None Seen); WBC,URINE >100 /HPF (0-5)
== END 2021-05-25 17:41 | disposition left against medical advice (07) ==
LOC: EMS 12:03
DX: R33.9 Retention of urine, unspecified (principal); Z53.21 Procedure and treatment not carried out due to patient leaving prior to being seen by health care provider
CPT/HCPCS: 81001; 87086